=== PATIENT | female | born 1975 | race African-American/Black ===

== ENCOUNTER 2017-09-29 09:19 | Emergency (ER) | payer SELFPAY ==
[2017-09-29 10:14] LABS: Absolute Lymphocytes (CBC) 1.4 K/uL (0.7-4.9); Absolute Monocytes 0.5 K/uL (0.1-1.3); Absolute Neutrophil 4.2 K/uL (1.8-8.0); Basophils % 0.4 % (0-1.3); Eosinophils % 1.3 % (0-4.4); Lymphocytes % 22.4 % (15.3-44.8); MCH 24.5 pg (27.0-35.0); MPV 9.2 fL (7.6-11.3)
[2017-09-29 10:24] LABS: Bicarbonate 21 mEq/L (21-31); Glucose Level 66 mg/dL (65-120); Potassium 3.9 mEq/L (3.6-5.0); Sodium Level 137 mEq/L (135-145)
[2017-09-29 10:27] LABS: ALT/SGPT 11 IU/L (10-60); AST/SGOT 19 IU/L (10-42); Albumin 5.1 g/dL (3.2-5.5); Alkaline Phosphatase 61 IU/L (42-121); BUN Blood Urea Nitrogen 16 mg/dL (6-20); Bilirubin Total 0.7 mg/dL (0.3-1.2); Protein, Total 9.5 g/dL (6.0-8.3)
--- NOTE | 2017-09-29 10:39 | ER ---
Nurse's Notes [facility] Name: Krysten Marley Age: 41 yrs Sex: Female : 1975 Arrival Date: 09/29/2017 Time: 09:22 Bed 15 Private MD: out of town, doctor Diagnosis: Cervical disc disorder with radiculopathy Presentation: 09/29 09:34 Presenting complaint: Patient states: has had pian to right arm X 2 weeks, radiates to iw neck, thinks it may be a pinched nerve, also has had a cough at night that keeps her from sleeping, also took a total of ten 500 mg Tylenol tabs on Friday from 7am-5 pm. Transition of care: patient was not received from another setting of care. Onset of symptoms was September 14, 2017. Care prior to arrival: None. 09:34 Method Of Arrival: Ambulatory iw 09:34 Acuity: NELSON 3 iw 09:35 Risk Assessment: Do you want to hurt yourself or someone else? Patient reports no tw2 desire to harm self or others. Initial Sepsis Screen: Does the patient meet any 2 criteria? No. Patient's initial sepsis screen is negative. Does the patient have a suspected source of infection? No. Patient's initial sepsis screen is negative. DIRECTOR OF OPERATIONS FOR THERAPY: 10:48 LMP N/A - . tw2 Historical: - Allergies: 09:59 No Known Allergies; tw2 - Home Meds: 09:59 None [Active]; tw2 - PMHx: 09:59 None; tw2 - Immunization history:: Adult Immunizations up to date. - Social history:: Smoking status: Patient/guardian denies using tobacco. - Ebola Screening: : Patient denies travel to an Ebola-affected area in the 21 days before illness onset. Screenin:33 Abuse screen: Denies threats or abuse. Nutritional screening: No deficits noted. tw2 Tuberculosis screening: No symptoms or risk factors identified. Fall Risk None identified. Assessment: 09:57 General: Appears in no apparent distress. slender, well groomed, Behavior is calm, tw2 cooperative, appropriate for age. Pain: Denies pain. Neuro: Level of Consciousness is awake, alert, obeys commands, Oriented to person, place, time, situation. Cardiovascular: Denies chest pain, shortness of breath, Heart tones S1 S2 Capillary refill < 3 seconds Patient's skin is warm and dry. Respiratory: Reports cough that is non-productive, worse at night Airway is patent Respiratory effort is even, unlabored, Respiratory pattern is regular, symmetrical, Breath sounds are clear bilaterally. GI: No signs and/or symptoms were reported involving the gastrointestinal system. Abdomen is flat, Bowel sounds present X 4 quads. : No signs and/or symptoms were reported regarding the genitourinary system. EENT: No signs and/or symptoms were reported regarding the EENT system. Derm: Skin is intact, is healthy with good turgor, Skin temperature is warm. Musculoskeletal: Range of motion: intact in all extremities. 10:17 Reassessment: Patient appears in no apparent distress at this time. No changes from tw2 previously documented assessment. Patient and/or family updated on plan of care and expected duration. Pain level reassessed. Patient is alert, oriented x 3, equal unlabored respirations, skin warm/dry/pink. 10:46 Reassessment: Patient appears in no apparent distress at this time. No changes from tw2 previously documented assessment. Patient and/or family updated on plan of care and expected duration. Pain level reassessed. Patient is alert, oriented x 3, equal unlabored respirations, skin warm/dry/pink. Vital Signs: 09:35 BP 115 / 92; Pulse 78; Resp 16 S; Temp 97.6; Pulse Ox 98% on R/A; iw 10:18 BP 115 / 87; Pulse 69; Resp 17; Pulse Ox 99% on R/A; tw2 10:47 BP 122 / 92; Pulse 64; Resp 16; Pulse Ox 98% on R/A; tw2 ED Course: 09:22 Patient arrived in ED. mr 09:22 out of town, doctor is Private Physician. mr 09:31 Saundra Nelson, MINAL is Primary Nurse. tw2 09:33 Arm band placed on. tw2 09:36 Emery Vale MD is Attending Physician. gs 09:36 Bed in low position. Call light in reach. Pulse ox on. NIBP on. tw2 09:38 Triage completed. iw 09:53 Urine --Ancillary (enter results) Sent. mh5 09:53 Urine Dipstick--Ancillary (enter results) Sent. mh5 09:53 Urine collected: clean catch specimen, clear. mh5 09:54 No provider procedures requiring assistance completed. Missed attempt(s): 24 gauge in tw2 left antecubital area. pt agreeable to additional sticks, states "i never have veins when i go to the doctors, this always happens to me". Missed attempt(s): 22 gauge in right antecubital area. Bleeding controlled, band aid applied, catheter tip intact. Missed attempt(s): 22 gauge in right antecubital area. MINAL Carrillo attempting at this time.. Bleeding controlled, band aid applied, catheter tip intact. 10:00 Missed attempt(s): 22 gauge in left antecubital area. Bleeding controlled, band aid sv applied, catheter tip intact. 10:02 Initial lab(s) drawn, by me, sent to lab. sv 10:07 Tylenol Level Sent. tw2 10:07 CMP Sent. tw2 10:07 CBC with Diff Sent. tw2 10:37 Dakotah Juarez MD is Referral Physician. 10:47 Patient did not have IV access during this emergency room visit. tw2 Administered Medications: No medications were administered Outcome: 10:38 Discharge ordered by . 10:47 Discharged to home ambulatory. tw2 10:47 Condition: stable 10:47 Discharge instructions given to patient, Instructed on discharge instructions, follow up and referral plans. medication usage, Demonstrated understanding of instructions, follow-up care, medications, Prescriptions given X 3. 10:48 Patient left the ED. tw2 Signatures: Lorena Cho RN RN sv Rivera, Maria mr Cherise Eldridge RN RN Saundra Nelson RN RN [facility] Teresa Glasgow [facility] Emery Vale MD MD Corrections: (The following items were deleted from the chart) 09:38 09:35 Temp 97.6F; tw2 iw
--- NOTE | 2017-09-29 10:39 | EDPHYS ---
Physician Documentation [facility] Name: Krysten Marley Age: 41 yrs Sex: Female : 1975 Arrival Date: 09/29/2017 Time: 09:22 Bed 15 Private MD: out of town, doctor ED Physician Emery Vale HPI: 09/29 11:01 This 41 yrs old Black Female presents to ER via Ambulatory with complaints of Arm Pain, gs Congestion, Runny Nose. 11:01 The patient or guardian complains of pain, that is acute. The complaints affect the gs anterior aspect of right shoulder and right bicep right upper back and medial scapula. Onset: The symptoms/episode began/occurred 3 day(s) ago. Modifying factors: the symptoms are aggravated by movement. Associated signs and symptoms: Pertinent negatives: deformity, erythema, numbness, incontinent of bowel or bladder. Severity of symptoms: At their worst the symptoms were moderate, in the emergency department the symptoms are unchanged. The patient has experienced similar episodes in the past, a few times. says too over 5000mg tylenol friday. 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 tw2 Historical: - Allergies: 09:59 No Known Allergies; tw2 - Home Meds: :59 None [Active]; tw2 - PMHx: :59 None; tw2 - Immunization history:: Adult Immunizations up to date. - Social history:: Smoking status: Patient/guardian denies using tobacco. - Ebola Screening: : Patient denies travel to an Ebola-affected area in the 21 days before illness onset. ROS: 11:01 All other systems are negative. gs Exam: 11:01 Head/Face: Normocephalic, atraumatic. Eyes: Pupils equal round and reactive to light, gs extra-ocular motions intact. Lids and lashes normal. Conjunctiva and sclera are non-icteric and not injected. Cornea within normal limits. Periorbital areas with no swelling, redness, or edema. ENT: Nares patent. No nasal discharge, no septal abnormalities noted. Tympanic membranes are normal and external auditory canals are clear. Oropharynx with no redness, swelling, or masses, exudates, or evidence of obstruction, uvula midline. Mucous membranes moist. Chest/axilla: Normal chest wall appearance and motion. Nontender with no deformity. No lesions are appreciated. Cardiovascular: Regular rate and rhythm with a normal S1 and S2. No gallops, murmurs, or rubs. Normal PMI, no JVD. No pulse deficits. Respiratory: Lungs have equal breath sounds bilaterally, clear to auscultation and percussion. No rales, rhonchi or wheezes noted. No increased work of breathing, no retractions or nasal flaring. Abdomen/GI: Soft, non-tender, with normal bowel sounds. No distension or tympany. No guarding or rebound. No evidence of tenderness throughout. Back: No spinal tenderness. No costovertebral tenderness. Full range of motion. Skin: Warm, dry with normal turgor. Normal color with no rashes, no lesions, and no evidence of cellulitis. MS/ Extremity: Pulses equal, no cyanosis. Neurovascular intact. Full, normal range of motion. Neuro: Awake and alert, GCS 15, oriented to person, place, time, and situation. Cranial nerves II-XII grossly intact. Motor strength 5/5 in all extremities. Sensory grossly intact. Cerebellar exam normal. Normal gait. 11:01 Constitutional: The patient appears alert, awake. 11:01 Neck: External neck: tenderness, that is moderate, of the right trapezius. Vital Signs: 09:35 BP 115 / 92; Pulse 78; Resp 16 S; Temp 97.6; Pulse Ox 98% on R/A; iw 10:18 BP 115 / 87; Pulse 69; Resp 17; Pulse Ox 99% on R/A; tw2 10:47 BP 122 / 92; Pulse 64; Resp 16; Pulse Ox 98% on R/A; tw2 MDM: 09:36 Patient medically screened. gs 11:01 Differential diagnosis: tendonitis, cervical radiculopathy, tylenol toxicity. Data reviewed: vital signs, nurses notes. 09/29 09:39 Order name: CBC with Diff; Complete Time: 10:36 09/29 09:39 Order name: CMP; Complete Time: 10:36 09/29 09:39 Order name: Tylenol Level; Complete Time: 10:36 09/29 09:47 Order name: Urine Dipstick--Ancillary (enter results) bd 09/29 09:47 Order name: Urine --Ancillary (enter results) bd Administered Medications: No medications were administered Disposition: 09/29/17 10:38 Discharged to Home. Impression: Cervical disc disorder with radiculopathy. - Condition is Stable. - Discharge Instructions: Cervical Radiculopathy, [id number]. - Prescriptions for Naprosyn 500 mg Oral Tablet - take 1 tablet by ORAL route 2 times per day take with food; 20 tablet. Prednisone 20 mg Oral Tablet - take 1 tablet by ORAL route once daily for 5 days; 5 tablet. Pepcid 20 mg Oral Tablet - take 1 tablet by ORAL route every 12 hours for 10 days; 20 tablet. - Work release form, Medication Reconciliation Form, Thank You Letter, Antibiotic Education, Prescription Opioid Use form. - Follow up: Dakotah Juarez MD; When: 2 - 3 days; Reason: Re-evaluation by your physician. Signatures: Dispatcher [employer] Saundra Valiente RN RN tw2 Emery Vale MD MD gs Corrections: (The following items were deleted from the chart) 10:48 10:38 09/29/2017 10:38 Discharged to Home. Impression: Cervical disc disorder with tw2 radiculopathy. Condition is Stable. Forms are Work release form, Medication Reconciliation Form, Thank You Letter, Antibiotic Education, Prescription Opioid Use. Follow up: Dakotah Juarez; When: 2 - 3 days; Reason: Re-evaluation by your physician. gs
[2017-09-29 11:11] VITALS: TEMP 97.6
[2017-09-29 11:14] VITALS: BP 122/92; O2SAT 98
[2017-09-29 11:21] LABS: Urine Blood NEGATIVE (NEG); Urine Glucose NEGATIVE (NEG); Urine Protein NEGATIVE (NEG); Urine pH 5.5 (5.0-7.0)
== END 2017-09-29 10:48 | disposition home or self-care (01) ==
LOC: ER 09:19
DX: M54.12 Radiculopathy, cervical region (principal)
CPT/HCPCS: 36415; 80053; 80329; 81003; 81025; 85025; 99283

== ENCOUNTER 2018-01-08 18:04 | Emergency (ER) | payer SELFPAY ==
[2018-01-08 19:55] LABS: Urine Blood NEGATIVE (NEG); Urine Glucose NEGATIVE (NEG); Urine Protein NEGATIVE (NEG); Urine Specific Gravity 1.015 (1.005-1.030); Urine pH 6.5 (5.0-7.0)
--- NOTE | 2018-01-08 20:36 | EDPHYS ---
Physician Documentation [facility] Name: Krysten Marley Age: 42 yrs Sex: Female : 1975 Arrival Date: 01/08/2018 Time: 18:05 Bed 20 Private MD: Ranjit Perez ED Physician Deepak Wolf HPI: 01/08 19:43 This 42 yrs old Black Female presents to ER via Ambulatory with complaints of Back Pain.keila 19:43 The patient presents with pain and decreased range of motion. The symptoms are located keila in the low back. Onset: The symptoms/episode began/occurred 2 day(s) ago. The pain does not radiate. Associated signs and symptoms: The patient has no apparent associated signs or symptoms. The problem was sustained from unknown cause. Modifying factors: The patient symptoms are alleviated by remaining still, the patient symptoms are aggravated by lifting, movement. Severity of symptoms: At their worst the symptoms were mild, moderate, in the emergency department the symptoms are unchanged. The patient has not experienced similar symptoms in the past. 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 - Social history:: Smoking status: Patient uses tobacco products, smokes one-half pack cigarettes per day. - Ebola Screening: : Patient denies travel to an Ebola-affected area in the 21 days before illness onset. - Family history:: not pertinent. ROS: 19:43 Constitutional: Negative for fever, chills, and weight loss, Eyes: Negative for injury, keila pain, redness, and discharge, ENT: Negative for injury, pain, and discharge, Neck: Negative for injury, pain, and swelling, Cardiovascular: Negative for chest pain, palpitations, and edema, Respiratory: Negative for shortness of breath, cough, wheezing, and pleuritic chest pain, Abdomen/GI: Negative for abdominal pain, nausea, vomiting, diarrhea, and constipation, MS/Extremity: Negative for injury and deformity, Skin: Negative for injury, rash, and discoloration, Neuro: Negative for headache, weakness, numbness, tingling, and seizure, Psych: Negative for depression, anxiety, suicide ideation, homicidal ideation, and hallucinations, Allergy/Immunology: Negative for hives, rash, and allergies, Endocrine: Negative for neck swelling, polydipsia, polyuria, polyphagia, and marked weight changes, Hematologic/Lymphatic: Negative for swollen nodes, abnormal bleeding, and unusual bruising. 19:43 Back: Positive for decreased range of motion, flank pain, on the right. Exam: 19:43 Constitutional: This is a well developed, well nourished patient who is awake, alert, keila and in no acute distress. Head/Face: Normocephalic, atraumatic. Eyes: Pupils equal round and reactive to light, extra-ocular motions intact. Lids and lashes normal. Conjunctiva and sclera are non-icteric and not injected. Cornea within normal limits. Periorbital areas with no swelling, redness, or edema. ENT: Nares patent. No nasal discharge, no septal abnormalities noted. Tympanic membranes are normal and external auditory canals are clear. Oropharynx with no redness, swelling, or masses, exudates, or evidence of obstruction, uvula midline. Mucous membranes moist. Neck: Trachea midline, no thyromegaly or masses palpated, and no cervical lymphadenopathy. Supple, full range of motion without nuchal rigidity, or vertebral point tenderness. No Meningismus. Chest/axilla: Normal chest wall appearance and motion. Nontender with no deformity. No lesions are appreciated. Cardiovascular: Regular rate and rhythm with a normal S1 and S2. No gallops, murmurs, or rubs. Normal PMI, no JVD. No pulse deficits. Respiratory: Lungs have equal breath sounds bilaterally, clear to auscultation and percussion. No rales, rhonchi or wheezes noted. No increased work of breathing, no retractions or nasal flaring. Abdomen/GI: Soft, non-tender, with normal bowel sounds. No distension or tympany. No guarding or rebound. No evidence of tenderness throughout. Back: No spinal tenderness. No costovertebral tenderness. Full range of motion. Skin: Warm, dry with normal turgor. Normal color with no rashes, no lesions, and no evidence of cellulitis. MS/ Extremity: Pulses equal, no cyanosis. Neurovascular intact. Full, normal range of motion. Neuro: Awake and alert, GCS 15, oriented to person, place, time, and situation. Cranial nerves II-XII grossly intact. Motor strength 5/5 in all extremities. Sensory grossly intact. Cerebellar exam normal. Normal gait. Psych: Awake, alert, with orientation to person, place and time. Behavior, mood, and affect are within normal limits. Vital Signs: 18:30 BP 123 / 85; Pulse 78; Resp 16; Temp 97.6; Pulse Ox 100% on R/A; Weight 61.69 kg (R); aj1 Height 5 ft. 7 in. (170.18 cm) (R); Pain 5/10; 19:29 BP 125 / 89; Pulse 100; Resp 18; Pulse Ox 63% on R/A; tl2 20:57 BP 121 / 85; Pulse 65; Resp 18; Pulse Ox 100% on R/A; tl2 18:30 Body Mass Index 21.30 (61.69 kg, 170.18 cm) [facility] MDM: 19:26 Patient medically screened. [facility] 19:46 Data reviewed: vital signs, nurses notes, lab test result(s), radiologic studies, plain [facility] films. 01/08 19:21 Order name: Urine Dipstick--Ancillary (enter results); Complete Time: 20:34 [facility] 01/08 19:21 Order name: Urine --Ancillary (enter results); Complete Time: 20:34 [facility] 01/08 19:43 Order name: Lumbar Spine (3 Views) XRAY [facility] 01/08 19:43 Order name: Urine Culture [facility] Administered Medications: No medications were administered Disposition: 01/08/18 20:35 Discharged to Home. Impression: Low back pain. - Condition is Stable. - Discharge Instructions: Back Pain, Adult, Musculoskeletal Pain, Back Injury Prevention, [id number], Back Pain, Adult, [id number]. - Prescriptions for Tylenol- Codeine #3 300-30 mg Oral Tablet - take 2 tablets by ORAL route every 6 hours As needed; 20 tablet. Motrin IB 200 mg Oral Tablet - take 1 tablet by ORAL route every 6 hours As needed as needed with food; 20 tablet. Cyclobenzaprine 5 mg Oral Tablet - take 1 tablet by ORAL route 3 times per day As needed; 15 tablet. - Medication Reconciliation Form, Thank You Letter, Antibiotic Education, Prescription Opioid Use form. - Follow up: Ranjti Perez MD; When: 2 - 3 days; Reason: Recheck today's complaints, Continuance of care, Re-evaluation by your physician. - Problem is new. - Symptoms have improved. Signatures: Dispatcher [employer] Naila Diehl RN RN aj1 Deepak Wolf MD MD cha Knox, Taylor RN RN tl2 Corrections: (The following items were deleted from the chart) 20:59 20:35 01/08/2018 20:35 Discharged to Home. Impression: Low back pain. Condition is tl2 Stable. Forms are Medication Reconciliation Form, Thank You Letter, Antibiotic Education, Prescription Opioid Use. Follow up: Ranjit Perez; When: 2 - 3 days; Reason: Recheck today's complaints, Continuance of care, Re-evaluation by your physician. Problem is new. Symptoms have improved. keila
--- NOTE | 2018-01-08 20:36 | ER ---
Nurse's Notes [facility] Name: Krysten Marley Age: 42 yrs Sex: Female : 1975 Arrival Date: 01/08/2018 Time: 18:05 Bed 20 Private MD: aRnjit Perez Diagnosis: Low back pain Presentation: 01/08 18:28 Presenting complaint: Patient states: Back pain for the past 2 to 3 weeks, now she has aj1 started to have a brownish vaginal discharge. Denies fever. Reports dysuria. Transition of care: patient was not received from another setting of care. Onset of symptoms was December 2017. Risk Assessment: Do you want to hurt yourself or someone else? Patient reports no desire to harm self or others. Initial Sepsis Screen: Does the patient meet any 2 criteria? No. Patient's initial sepsis screen is negative. Does the patient have a suspected source of infection? No. Patient's initial sepsis screen is negative. Care prior to arrival: None. 18:28 Method Of Arrival: Ambulatory aj 18:28 Acuity: NELSON 3 aj1 Triage Assessment: 18:30 General: Appears in no apparent distress. uncomfortable, Behavior is calm, cooperative, aj1 appropriate for age. Pain: Complains of pain in left low back Pain currently is 6 out of 10 on a pain scale. Neuro: Level of Consciousness is awake, alert, obeys commands. Cardiovascular: Patient's skin is warm and dry. Respiratory: Airway is patent Respiratory effort is even, unlabored, Respiratory pattern is regular, symmetrical. : Reports burning with urination, discharge, from vagina that is brown. Musculoskeletal: Range of motion: intact in all extremities. 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 - Social history:: Smoking status: Patient uses tobacco products, smokes one-half pack cigarettes per day. - Ebola Screening: : Patient denies travel to an Ebola-affected area in the 21 days before illness onset. - Family history:: not pertinent. Screenin:20 Abuse screen: Denies threats or abuse. Nutritional screening: No deficits noted. tl2 Tuberculosis screening: No symptoms or risk factors identified. Fall Risk None identified. Assessment: 19:20 General: Appears in no apparent distress. uncomfortable, Behavior is calm, cooperative, tl2 appropriate for age. Pain: Complains of pain in left low back and left mid back Pain currently is 8 out of 10 on a pain scale. Neuro: Level of Consciousness is awake, alert, obeys commands, Oriented to person, place, time, situation. Cardiovascular: Denies chest pain. Respiratory: Airway is patent Respiratory effort is even, unlabored, Respiratory pattern is regular, symmetrical. GI: Patient currently denies nausea, vomiting. : Reports discharge, from vagina that is Denies burning with urination. Derm: Skin is normal. 20:30 Reassessment: Patient appears in no apparent distress at this time. Patient and/or tl2 family updated on plan of care and expected duration. Pain level reassessed. Patient is alert, oriented x 3, equal unlabored respirations, skin warm/dry/pink. awaiting Xray report. 20:57 Reassessment: Patient appears in no apparent distress at this time. Patient and/or tl2 family updated on plan of care and expected duration. Pain level reassessed. Patient is alert, oriented x 3, equal unlabored respirations, skin warm/dry/pink. Pt verbalized understanding of discharge instructions, need for follow up and prescription usage. Vital Signs: 18:30 BP 123 / 85; Pulse 78; Resp 16; Temp 97.6; Pulse Ox 100% on R/A; Weight 61.69 kg (R); aj1 Height 5 ft. 7 in. (170.18 cm) (R); Pain 5/10; 19:29 BP 125 / 89; Pulse 100; Resp 18; Pulse Ox 63% on R/A; tl2 20:57 BP 121 / 85; Pulse 65; Resp 18; Pulse Ox 100% on R/A; tl2 18:30 Body Mass Index 21.30 (61.69 kg, 170.18 cm) aj1 ED Course: 18:05 Patient arrived in ED. sb2 18:06 Ranjit Perez MD is Private Physician. sb2 18:29 Triage completed. aj1 18:30 Arm band placed on Patient placed in waiting room, Patient notified of wait time. aj1 19:20 Juana Walsh, RN is Primary Nurse. tl2 19:20 Patient has correct armband on for positive identification. Placed in gown. Bed in low tl2 position. Call light in reach. Side rails up X 1. 19:20 No provider procedures requiring assistance completed. tl2 19:26 Deepak Wolf MD is Attending Physician. [facility] 19:45 Urine collected: clean catch specimen, clear, ruthy colored. jp3 20:12 Urine Culture Sent. jp3 20:22 Lumbar Spine (3 Views) XRAY In Process Unspecified. EDMS 20:34 Ranjit Perez MD is Referral Physician. [facility] 20:57 Patient did not have IV access during this emergency room visit. tl2 Administered Medications: No medications were administered Outcome: 20:35 Discharge ordered by . [facility] 20:57 Discharged to home ambulatory. tl2 20:57 Condition: stable 20:57 Discharge instructions given to patient, Instructed on discharge instructions, follow up and referral plans. medication usage, Demonstrated understanding of instructions, follow-up care, medications, Prescriptions given X 3. 20:59 Patient left the ED. tl2 Signatures: Dispatcher [employer] EDTN Naila Killian RN RN aj1 Deepak Wolf MD MD cha Knox, Taylor, RN RN tl2 Deepa Ruiz 2 Aidan Aguilar jp3
--- NOTE | 2018-01-08 20:58 | RAD REPORT ---
EXAM DESCRIPTION: RAD - Lumbar Spine 3 Views - 01/08/2018 8:22 pm CLINICAL HISTORY: Back pain COMPARISON: None. FINDINGS: A three-view lumbar spine examination was performed. Lumbar bodies are normal in height an d alignment. No fracture or acute bony process seen. No disc space narrowing. Mild facet degenerative changes are present between L3 and L5. No pars defects identified. IMPRESSION: Mild lower lumbar facet degenerative change. No acute findings noted.
[2018-01-08 21:10] VITALS: TEMP 97.6
[2018-01-08 21:13] VITALS: BP 121/85; O2SAT 100
== END 2018-01-08 20:59 | disposition home or self-care (01) ==
LOC: ER 18:04
DX: M54.5 Low back pain (principal); F17.210 Nicotine dependence, cigarettes, uncomplicated
CPT/HCPCS: 72100; 81003; 81025; 87086; 87088; 99283

== ENCOUNTER 2018-06-30 18:01 | Emergency (ER) | payer BC, SELFPAY ==
[2018-06-30 19:04] LABS: Absolute Monocytes 0.5 K/uL (0.1-1.3); Absolute Neutrophil 3.7 K/uL (1.8-8.0); Basophils % 0.7 % (0-1.3); Eosinophils % 2.4 % (0-4.4); Hematocrit 40.6 % (36.0-45.0); Lymphocytes % 31.6 % (15.3-44.8); Monocytes % 8.1 % (3.3-12.3); Protime INR 1.05
[2018-06-30 19:11] LABS: Urine Blood NEGATIVE (NEG); Urine Glucose NEGATIVE (NEG); Urine Protein NEGATIVE (NEG); Urine Specific Gravity 1.025 (1.005-1.030); Urine pH 5.5 (5.0-7.0)
[2018-06-30 19:19] LABS: ALT/SGPT 13 U/L (12-78); AST/SGOT 9 U/L (15-37); Alkaline Phosphatase 63 U/L (45-117); BUN Blood Urea Nitrogen 14 mg/dL (7-18); Bicarbonate 25 mmol/L (21-32); Bilirubin Direct 0.1 mg/dL (0-0.2); Bilirubin Total 0.3 mg/dL (0.2-1.0); Glucose Level 74 mg/dL (74-106); Magnesium 2.1 mg/dL (1.8-2.4); NT PRO-BNP 60 pg/mL (<125); Potassium 3.6 mmol/L (3.5-5.1); Protein, Total 7.9 g/dL (6.4-8.2); Sodium Level 140 mmol/L (136-145); Troponin (Emerg Dept Use Only) < 0.02 ng/mL (0.0-0.045)
--- NOTE | 2018-06-30 19:40 | RAD REPORT ---
EXAM DESCRIPTION: Meera Single View06/30/2018 7:11 pm CLINICAL HISTORY: Chest pain COMPARISON: And 2017 FINDINGS: 9 millimeter nodular opacity overlies the mid to lower left lung. Lungs are moderately hy peraerated. The heart is normal size IMPRESSION: COPD Nodular opacity overlying the left lung probably representing a nipple shadow. Pulmonary nodules anot her consideration. It is recommended that patient have frontal and oblique views of the chest with a left nipple marker for further evaluation
--- NOTE | 2018-06-30 20:25 | EDPHYS ---
Physician Documentation [facility] Name: Krysten Marley Age: 42 yrs Sex: Female : 1975 Arrival Date: 06/30/2018 Time: 18:04 Bed 13 Private MD: None, None ED Physician Janae Wooten HPI: 06/30 18:46 This 42 yrs old Black Female presents to ER via Ambulatory with complaints of Chest ma2 Pain, Mouth Problem. 18:46 The patient or guardian reports chest pain that is located primarily in the anterior ma2 chest wall. Onset: gradually, 1 week(s) ago. Associated signs and symptoms: Pertinent positives: Pertinent negatives: cough, headache, lightheadedness. Duration: The patient or guardian reports multiple episodes, that have now resolved. Modifying factors: The symptoms are alleviated by nothing. the symptoms are aggravated by deep breath, palpation of area. Severity of pain: At its worst the pain was mild in the emergency department the pain is unchanged. Historical: - Allergies: 18:16 No Known Allergies; sv - PMHx: 18:16 None; sv - PSHx: 18:16 None; sv - Immunization history:: Adult Immunizations up to date. - Social history:: Patient/guardian denies using alcohol, street drugs, The patient lives with family, Smoking status: Patient/guardian denies using tobacco. - Family history:: not pertinent. - Ebola Screening: : No symptoms or risks identified at this time. ROS: 18:46 Constitutional: Negative for fever, chills, and weight loss. ma2 18:46 All other systems are negative. Exam: 18:46 Constitutional: This is a well developed, well nourished patient who is awake, alert, ma2 and in no acute distress. Chest/axilla: Normal chest wall appearance and motion. Nontender with no deformity. No lesions are appreciated. Cardiovascular: Regular rate and rhythm with a normal S1 and S2. No gallops, murmurs, or rubs. Normal PMI, no JVD. No pulse deficits. Respiratory: Lungs have equal breath sounds bilaterally, clear to auscultation and percussion. No rales, rhonchi or wheezes noted. No increased work of breathing, no retractions or nasal flaring. Abdomen/GI: Soft, non-tender, with normal bowel sounds. No distension or tympany. No guarding or rebound. No evidence of tenderness throughout. MS/ Extremity: Pulses equal, no cyanosis. Neurovascular intact. Full, normal range of motion. Neuro: Awake and alert, GCS 15, oriented to person, place, time, and situation. Cranial nerves II-XII grossly intact. Motor strength 5/5 in all extremities. Sensory grossly intact. Cerebellar exam normal. Normal gait. 18:46 Chest/axilla: Inspection: normal, Palpation: tenderness, that is moderate. Vital Signs: 18:16 BP 107 / 78; Pulse 75; Resp 16; Temp 97.5; Pulse Ox 98% ; Weight 61.69 kg; Height 5 ft. sv 7 in. (170.18 cm); Pain 0/10; 20:30 BP 128 / 99; Pulse 60; Resp 16; Pulse Ox 97% on R/A; jb4 18:16 Body Mass Index 21.30 (61.69 kg, 170.18 cm) sv MDM: 18:27 Patient medically screened. ma2 18:46 Differential diagnosis: esophagitis, gastritis, gastroesophageal reflux disease (GERD). ma2 19:55 Data reviewed: vital signs, nurses notes, lab test result(s), radiologic studies. ma2 Counseling: I had a detailed discussion with the patient and/or guardian regarding: the historical points, exam findings, and any diagnostic results supporting the discharge/admit diagnosis, the presence of at least one elevated blood pressure reading (>120/80) during this emergency department visit, the need for outpatient follow up. 06/30 18:27 Order name: Basic Metabolic Panel; Complete Time: 19:32 2 06/30 18:27 Order name: CBC with Diff; Complete Time: :32 2 06/30 18:27 Order name: LFT's; Complete Time: :32 ma2 06/30 18:27 Order name: Magnesium; Complete Time: :32 2 06/30 18:27 Order name: NT PRO-BNP; Complete Time: :32 06/30 18:27 Order name: PT-INR; Complete Time: :32 2 06/30 18:27 Order name: Troponin (emerg Dept Use Only); Complete Time: :32 ma2 06/30 18:27 Order name: XRAY Chest (1 view); Complete Time: 19:55 ma2 06/30 18:27 Order name: EKG; Complete Time: 18:28 ma2 06/30 18:27 Order name: Cardiac monitoring; Complete Time: 18:44 ma2 06/30 18:27 Order name: EKG - Nurse/Tech; Complete Time: 18:43 ma2 06/30 18:27 Order name: IV Saline Lock; Complete Time: 18:57 ma2 06/30 18:46 Order name: Urine Dipstick--Ancillary (enter results); Complete Time: 19:32 bd 06/30 18:46 Order name: Urine --Ancillary (enter results); Complete Time: 19:32 bd 06/30 18:27 Order name: Labs collected and sent; Complete Time: 18:58 ma2 06/30 18:27 Order name: O2 Per Protocol; Complete Time: 18:58 ma2 06/30 18:27 Order name: O2 Sat Monitoring; Complete Time: 18:58 ma2 Administered Medications: No medications were administered Disposition: 06/30/18 20:24 Discharged to Home. Impression: Shortness of breath. - Condition is Stable. - Discharge Instructions: Shortness of Breath, [id number]. - Prescriptions for Zithromax Z- Ata 250 mg Oral Tablet - take 1 tablet by ORAL route as directed for 5 days Day 1 - take two (2) tablets one time. Day 2, 3, 4 , 5 take one (1) tablet once daily.; 6 tablet. - Medication Reconciliation Form, Thank You Letter, Antibiotic Education, Prescription Opioid Use form. - Follow up: Private Physician; When: Tomorrow; Reason: Continuance of care. - Notes: you have a lung nodule on chest x ray, please follow up with your PCP for further evaluation. Signatures: Dispatcher [employer] Lorena Seay RN RN sv Baxter, Heather, RN RN hb Bryson, James, RN RN jb4 Janae Wooten MD MD ma2 Corrections: (The following items were deleted from the chart) 20:51 20:24 06/30/2018 20:24 Discharged to Home. Impression: Shortness of breath. Condition jb4 is Stable. Discharge Instructions: Shortness of Breath, Glsh-yj-Oihy. Prescriptions for Zithromax Z-Ata 250 mg Oral Tablet - take 1 tablet by ORAL route as directed for 5 days Day 1 - take two (2) tablets one time. Day 2, 3, 4 , 5 take one (1) tablet once daily.; 6 tablet. and Forms are Medication Reconciliation Form, Thank You Letter, Antibiotic Education, Prescription Opioid Use. Follow up: Private Physician; When: Tomorrow; Reason: Continuance of care. ma2
--- NOTE | 2018-06-30 20:25 | ER ---
Nurse's Notes [facility] Name: Krysten Marley Age: 42 yrs Sex: Female : 1975 Arrival Date: 06/30/2018 Time: 18:04 Bed 13 Private MD: None, None Diagnosis: Shortness of breath Presentation: 06/30 18:16 Presenting complaint: Patient states: left sided chest pain when she moves and mouth sv sores x 1 day. Transition of care: patient was not received from another setting of care. Onset of symptoms was June 29, 2018. Care prior to arrival: None. 18:16 Method Of Arrival: Ambulatory sv 18:16 Acuity: NELSON 3 sv 18:45 Risk Assessment: Do you want to hurt yourself or someone else? Patient reports no hb desire to harm self or others. Initial Sepsis Screen: Does the patient meet any 2 criteria? No. Patient's initial sepsis screen is negative. Does the patient have a suspected source of infection? No. Patient's initial sepsis screen is negative. Historical: - Allergies: 18:16 No Known Allergies; sv - PMHx: 18:16 None; sv - PSHx: 18:16 None; sv - Immunization history:: Adult Immunizations up to date. - Social history:: Patient/guardian denies using alcohol, street drugs, The patient lives with family, Smoking status: Patient/guardian denies using tobacco. - Family history:: not pertinent. - Ebola Screening: : No symptoms or risks identified at this time. Screenin:35 Abuse screen: Denies threats or abuse. Denies injuries from another. Nutritional hb screening: No deficits noted. Tuberculosis screening: No symptoms or risk factors identified. Fall Risk None identified. Assessment: 18:35 General: Appears in no apparent distress. Behavior is calm, cooperative. Pain: hb Complains of pain in left breast Pain does not radiate. Pain currently is 2 out of 10 on a pain scale. Pain began 4 hours ago. Neuro: Level of Consciousness is awake, alert, obeys commands, Oriented to person, place, time, situation. Cardiovascular: Heart tones S1 S2 present Capillary refill < 3 seconds Patient's skin is warm and dry. Respiratory: Airway is patent Respiratory effort is even, unlabored, Respiratory pattern is regular, symmetrical, Breath sounds are clear bilaterally. GI: No signs and/or symptoms were reported involving the gastrointestinal system. : No signs and/or symptoms were reported regarding the genitourinary system. EENT: No signs and/or symptoms were reported regarding the EENT system. Derm: Skin is intact, is healthy with good turgor. Musculoskeletal: No signs and/or symptoms reported regarding the musculoskeletal system. 19:30 Reassessment: Patient appears in no apparent distress at this time. Patient and/or jb4 family updated on plan of care and expected duration. Pain level reassessed. Patient is alert, oriented x 3, equal unlabored respirations, skin warm/dry/pink. 20:30 Reassessment: Patient appears in no apparent distress at this time. Patient and/or jb4 family updated on plan of care and expected duration. Pain level reassessed. Patient is alert, oriented x 3, equal unlabored respirations, skin warm/dry/pink. Vital Signs: 18:16 BP 107 / 78; Pulse 75; Resp 16; Temp 97.5; Pulse Ox 98% ; Weight 61.69 kg; Height 5 ft. sv 7 in. (170.18 cm); Pain 0/10; 20:30 BP 128 / 99; Pulse 60; Resp 16; Pulse Ox 97% on R/A; jb4 18:16 Body Mass Index 21.30 (61.69 kg, 170.18 cm) sv ED Course: 18:04 Patient arrived in ED. mr 18:04 None, None is Private Physician. mr 18:16 Triage completed. sv 18:18 Arm band placed on. sv 18:20 Tiana Sanchez, MINAL is Primary Nurse. hb 18:27 Janae Wooten MD is Attending Physician. ma2 18:35 Patient maintains SpO2 saturation greater than 95% on room air. hb 18:40 Inserted saline lock: 20 gauge in right forearm, using aseptic technique. Blood hb collected. 18:42 EKG done, by ED staff, reviewed by Janae Wooten MD. mh5 18:43 Patient has correct armband on for positive identification. Placed in gown. Bed in low mh5 position. Call light in reach. Side rails up X 1. Warm blanket given. hydrologic modeler on. Pulse ox on. NIBP on. 19:08 X-ray completed. Portable x-ray completed in exam room. Patient tolerated procedure ml well. 19:10 XRAY Chest (1 view) In Process Unspecified. EDMS 20:30 No provider procedures requiring assistance completed. IV discontinued, intact, jb4 bleeding controlled. Administered Medications: No medications were administered Outcome: 20:24 Discharge ordered by . otis 20:30 Discharged to home ambulatory. jb4 20:30 Condition: stable 20:30 Discharge instructions given to patient, Instructed on discharge instructions, follow up and referral plans. medication usage, Demonstrated understanding of instructions, follow-up care, medications, Prescriptions given X 1. 20:51 Patient left the ED. jb4 Signatures: Dispatcher [employer] EDMS Lorena Cho RN RN jhon Rowan, Nora mr Ritesh, Irena Tiana Carlos, RN Dakotah Buck RN RN jbTeresa Padilla Mohammad, MD MD ma2 Corrections: (The following items were deleted from the chart) 18:18 18:16 Presenting complaint: Patient states: left sided chest pain and mouth sores x 1 sv day. sv
[2018-06-30 20:58] VITALS: TEMP 97.5
[2018-06-30 21:00] VITALS: BP 128/99; O2SAT 97
--- NOTE | 2018-07-01 07:44 | EKG ---
Test Date: 2018-06-30 Test Time: 18:30:23 Senior Coldfusion Developer: TAMIA MEASUREMENT RESULTS: Intervals: Rate: 74 WA: 140 QRSD: 80 QT: 396 QTc: 439 [place]odgett: P: 44 WA: 140 QRS: 66 T: 60 INTERPRETIVE STATEMENTS: Normal sinus rhythm Normal ECG Compared to ECG 12/31/2016 22:29:40 Sinus tachycardia no longer present Electronically Signed On 07-01-18 07:43:23 CDT by Vance Beltran
== END 2018-06-30 20:51 | disposition home or self-care (01) ==
LOC: ER 18:01
DX: R06.02 Shortness of breath (principal)
CPT/HCPCS: 36415; 71045; 80048; 80076; 81003; 81025; 83735; 83880; 84484; 85025; 85610; 93005; 99285

== ENCOUNTER 2018-12-13 18:07 | Emergency (ER) | payer BC ==
[2018-12-13] MEDS ORDERED: FLUORESCEIN SODIUM 1 MG/WRAP ONE (18:25)
[2018-12-13] MEDS ORDERED: TETRACAINE HCL 0.5% 4ML OPTH ONE (18:26)
[2018-12-13] MEDS ORDERED: dexAMETHasone 10 MG/ML VIAL ONE (18:53)
[2018-12-13] MEDS ORDERED: DIPHENHYDRAMINE 50 MG/ML VIAL ONE (18:53)
[2018-12-13] MEDS ORDERED: METOCLOPRAMIDE 10 MG/2mL INJ ONE (18:53)
[2018-12-13 19:17] LABS: Absolute Lymphocytes (CBC) 3.5 K/uL (0.7-4.9); Basophils % 0.7 % (0-1.3); Hematocrit 41.3 % (36.0-45.0); Lymphocytes % 48.1 % (15.3-44.8); MPV 8.9 fL (7.6-11.3); RBC Red Blood Cell Count 5.65 M/uL (3.86-4.86)
--- NOTE | 2018-12-13 19:27 | RAD REPORT ---
EXAM DESCRIPTION: CT - Head Brain Wo Cont - 12/13/2018 7:04 pm CLINICAL HISTORY: Headache COMPARISON: 2017 TECHNIQUE: Computed axial tomography of the head was obtained. IV contrast was not requested. All CT scans are performed using dose optimization technique as appropriate and may include automated exposure control or mA/KV adjustment according to patient size. FINDINGS: An intracranial bleed is not seen . The ventricles are normal in caliber. No extra-axial fluid collection is noted. Cerebellar tonsillar ectopia is present Fluid within the sinuses/ mastoids is not seen. IMPRESSION: No acute intracranial abnormality is seen. If patient's symptoms persist MRI of the bra in would be recommended.
[2018-12-13 19:33] LABS: Potassium 4.3 mmol/L (3.5-5.1)
[2018-12-13 19:54] LABS: Blood Morphology Comment NOT SEEN (NOT SEEN); Platelet Estimate ADEQ
[2018-12-13] MEDS ORDERED: IBUPROFEN 400 MG TAB ONE (20:13)
--- NOTE | 2018-12-13 20:15 | EDPHYS ---
Physician Documentation [facility] Name: Krysten Marley Age: 43 yrs Sex: Female : 1975 Arrival Date: 12/13/2018 Time: 18:09 Bed 24 Private MD: Ranjit Perez ED Physician Deepak Wolf HPI: 12/13 20:08 This 43 yrs old Black Female presents to ER via Ambulatory with complaints of headache. jr8 20:08 The patient complains of pain to the right temporal area, right occipital area and jr8 right jewish. The patient describes the headache as a pressure, throbbing. Onset: The symptoms/episode began/occurred gradually, 2 week(s) ago, and became worse and became persistent. Associated signs and symptoms: The patient has no apparent associated signs or symptoms. Severity of symptoms: At its worst the pain was moderate, in the emergency department the pain is unchanged. Headache History: Denies prior headaches. The patient has not experienced similar symptoms in the past. The patient has not recently seen a physician. History of glaucoma and currently on drops for her eye. Complains of pressure behind eye and pain to jewish on right side all the way back . 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 - Social history:: Smoking status: Patient uses tobacco products, smokes one-half pack cigarettes per day. - Ebola Screening: : No symptoms or risks identified at this time. ROS: 20:08 Eyes: Negative for injury, pain, redness, and discharge, ENT: Negative for injury, jr8 pain, and discharge, Neck: Negative for injury, pain, and swelling, Cardiovascular: Negative for chest pain, palpitations, and edema, Respiratory: Negative for shortness of breath, cough, wheezing, and pleuritic chest pain, Abdomen/GI: Negative for abdominal pain, nausea, vomiting, diarrhea, and constipation, Back: Negative for injury and pain, MS/Extremity: Negative for injury and deformity, Skin: Negative for injury, rash, and discoloration. 20:08 Neuro: Positive for headache, Negative for altered mental status, dizziness, gait disturbance, hearing loss, loss of consciousness, numbness, seizure activity, speech changes, syncope, near syncope, tingling, tinnitus, tremor, visual changes, weakness. Exam: 20:10 Eyes: Pupils equal round and reactive to light, extra-ocular motions intact. Lids and jr8 lashes normal. Conjunctiva and sclera are non-icteric and not injected. Cornea within normal limits. Periorbital areas with no swelling, redness, or edema. IOP 14mmHg right eye ENT: Nares patent. No nasal discharge, no septal abnormalities noted. Tympanic membranes are normal and external auditory canals are clear. Oropharynx with no redness, swelling, or masses, exudates, or evidence of obstruction, uvula midline. Mucous membranes moist. Neck: Trachea midline, no thyromegaly or masses palpated, and no cervical lymphadenopathy. Supple, full range of motion without nuchal rigidity, or vertebral point tenderness. No Meningismus. Cardiovascular: Regular rate and rhythm with a normal S1 and S2. No gallops, murmurs, or rubs. Normal PMI, no JVD. No pulse deficits. Respiratory: Lungs have equal breath sounds bilaterally, clear to auscultation and percussion. No rales, rhonchi or wheezes noted. No increased work of breathing, no retractions or nasal flaring. Abdomen/GI: Soft, non-tender, with normal bowel sounds. No distension or tympany. No guarding or rebound. No evidence of tenderness throughout. Back: No spinal tenderness. No costovertebral tenderness. Full range of motion. Skin: Warm, dry with normal turgor. Normal color with no rashes, no lesions, and no evidence of cellulitis. MS/ Extremity: Pulses equal, no cyanosis. Neurovascular intact. Full, normal range of motion. Neuro: Awake and alert, GCS 15, oriented to person, place, time, and situation. Cranial nerves II-XII grossly intact. Motor strength 5/5 in all extremities. Sensory grossly intact. Cerebellar exam normal. Normal gait. Vital Signs: 18:15 BP 118 / 78; Pulse 101; Resp 16; Temp 97.4; Pulse Ox 100% on R/A; Weight 68.95 kg; la1 Height 5 ft. 7 in. (170.18 cm); 19:48 BP 119 / 81; Pulse 69; Resp 16 S; Pulse Ox 100% on R/A; ca1 20:26 BP 111 / 71; Pulse 76; Resp 15 S; Pulse Ox 100% on R/A; ca1 18:15 Body Mass Index 23.81 (68.95 kg, 170.18 cm) la1 Visual Acuity: 18:17 Left Eye Visual acuity 20/40, Pupil size 4 mm, ; Right Eye Visual acuity 20/200, Pupil la1 size 4 mm, ; Without Lenses; MDM: 18:43 Patient medically screened. keila 20:10 Differential diagnosis: cluster headache, glaucoma, herpes zoster, hypoglycemia, jr8 intracerebral hemorrhage, migraine, neoplasm, otitis, sinusitis, subarachnoid bleed, subdural hematoma, tension headache, trigeminal neuralgia. Data reviewed: vital signs, nurses notes, lab test result(s), radiologic studies, CT scan. Data interpreted: Pulse oximetry: on room air is 100 %. Interpretation: normal. Counseling: I had a detailed discussion with the patient and/or guardian regarding: the historical points, exam findings, and any diagnostic results supporting the discharge/admit diagnosis, lab results, radiology results, the need for outpatient follow up, a neurologist, to return to the emergency department if symptoms worsen or persist or if there are any questions or concerns that arise at home. Response to treatment: the patient's symptoms have markedly improved after treatment. 12/13 18:46 Order name: CBC with Diff; Complete Time: 20:08 [facility] 12/13 18:46 Order name: Basic Metabolic Panel; Complete Time: 19:43 8 12/13 18:46 Order name: CT Head Brain wo Cont; Complete Time: 19:43 [facility] 12/13 19:20 Order name: Manual Differential; Complete Time: 20:08 EDMS 12/13 18:46 Order name: IV; Complete Time: 19:03 Administered Medications: 18:50 Drug: Reglan 10 mg Route: IVP; Site: left antecubital; ca1 20:00 Follow up: Response: No adverse reaction; Pain is decreased ca1 18:55 Drug: Benadryl 25 mg Route: IVP; Site: left antecubital; ca1 20:00 Follow up: Response: No adverse reaction; Pain is decreased ca1 19:00 Drug: Decadron - Dexamethasone 10 mg Route: IVP; Site: left antecubital; ca1 20:00 Follow up: Response: No adverse reaction; Pain is decreased ca1 20:17 Drug: TORadol - Ketorolac 15 mg Route: IVP; Site: left forearm; ca1 20:26 Follow up: Response: No adverse reaction; Pain is decreased ca1 Disposition: 12/14 09:27 Co-signature as Attending Physician, Deepak Wolf MD I agree with the assessment and [facility] plan of care. Disposition: 12/13/18 20:13 Discharged to Home. Impression: Migraine. - Condition is Stable. - Discharge Instructions: Migraine Headache. - Prescriptions for Fioricet 50- 325-40 mg Oral tablet - take 2 tablet by ORAL route every 4 hours as needed not to exceed 6 tablets per 24hrs; 20 tablet. - Medication Reconciliation Form, Thank You Letter, Antibiotic Education, Prescription Opioid Use form. - Follow up: Ricci Armas MD; When: 1 week; Reason: Recheck today's complaints, Continuance of care, Re-evaluation by your physician. - Problem is new. - Symptoms have improved. Signatures: Dispatcher [employer] EDAL Deepak Wolf MD MD cha Roszak, Josh, PA PA jr8 Jose Whelan RN RN la1 Kennedi Blanchard RN RN ca1 Corrections: (The following items were deleted from the chart) 12/13 20:27 20:13 12/13/2018 20:13 Discharged to Home. Impression: Migraine. Condition is Stable. ca1 Forms are Medication Reconciliation Form, Thank You Letter, Antibiotic Education, Prescription Opioid Use. Follow up: Ricci Armas; When: 1 week; Reason: Recheck today's complaints, Continuance of care, Re-evaluation by your physician. Problem is new. Symptoms have improved. jr8
[2018-12-13] MEDS ORDERED: KETOROLAC 30 MG/ML INJ ONE (20:16)
--- NOTE | 2018-12-13 20:28 | ER ---
Nurse's Notes [facility] Name: Krysten Marley Age: 43 yrs Sex: Female : 1975 Arrival Date: 12/13/2018 Time: 18:09 Bed 24 Private MD: Ranjit Perez Diagnosis: Migraine Presentation: 12/13 18:13 Presenting complaint: Patient states: I have been having a SAEED behind my right eye for la1 about 2 weeks now and it is just getting worse and worse. On Friday it started affecting my vision and now the pain is unbearable. I am being treated for what they think is glaucoma. Transition of care: patient was not received from another setting of care. Onset of symptoms was December 13, 2018. Risk Assessment: Do you want to hurt yourself or someone else? Patient reports no desire to harm self or others. Initial Sepsis Screen: Does the patient meet any 2 criteria? Yes Does the patient have a suspected source of infection? No. Patient's initial sepsis screen is negative. Care prior to arrival: None. 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 - Social history:: Smoking status: Patient uses tobacco products, smokes one-half pack cigarettes per day. - Ebola Screening: : No symptoms or risks identified at this time. Screenin:45 Abuse screen: Denies threats or abuse. Denies injuries from another. Nutritional ca1 screening: No deficits noted. Tuberculosis screening: No symptoms or risk factors identified. Fall Risk IV access (20 points). Assessment: 18:45 General: Appears in no apparent distress. comfortable, Behavior is calm, cooperative, ca1 appropriate for age. Pain: Complains of pain in right eye Pain radiates to forehead, right cheek, right ear and right taoist Pain currently is 10 out of 10 on a pain scale. Quality of pain is described as pressure. Neuro: Level of Consciousness is awake, alert, obeys commands, Oriented to person, place, time, situation, Appropriate for age. Cardiovascular: Heart tones S1 S2 present Capillary refill < 3 seconds Patient's skin is warm and dry. Respiratory: Airway is patent Respiratory effort is even, unlabored, Breath sounds are clear bilaterally. GI: Abdomen is flat, non-distended, Bowel sounds present X 4 quads. Abd is soft and non tender X 4 quads. EENT: Eyes are tearing on right inner canthus and left inner canthus Reports blurred vision. Derm: Skin is intact, is healthy with good turgor, Skin is pink, warm \T\ dry. Musculoskeletal: Circulation, motion, and sensation intact. Capillary refill < 3 seconds, Range of motion: intact in all extremities. 19:48 Reassessment: Patient appears in no apparent distress at this time. Patient and/or ca1 family updated on plan of care and expected duration. Pain level reassessed. Patient is alert, oriented x 3, equal unlabored respirations, skin warm/dry/pink. Patient states feeling better. 20:26 Reassessment: Patient appears in no apparent distress at this time. Patient is alert, ca1 oriented x 3, equal unlabored respirations, skin warm/dry/pink. Patient states feeling better. Vital Signs: 18:15 BP 118 / 78; Pulse 101; Resp 16; Temp 97.4; Pulse Ox 100% on R/A; Weight 68.95 kg; la1 Height 5 ft. 7 in. (170.18 cm); 19:48 BP 119 / 81; Pulse 69; Resp 16 S; Pulse Ox 100% on R/A; ca1 20:26 BP 111 / 71; Pulse 76; Resp 15 S; Pulse Ox 100% on R/A; ca1 18:15 Body Mass Index 23.81 (68.95 kg, 170.18 cm) la1 Visual Acuity: 18:17 Left Eye Visual acuity 20/40, Pupil size 4 mm, ; Right Eye Visual acuity 20/200, Pupil la1 size 4 mm, ; Without Lenses; ED Course: 18:09 Patient arrived in ED. dl4 18:10 Ranjit Perez MD is Private Physician. dl4 18:13 Arm band placed on left wrist. la1 18:15 Triage completed. la1 18:38 Stanton Gabriel PA is PHCP. jr8 18:38 Deepak Wolf MD is Attending Physician. jr8 18:41 Kennedi Blanchard RN is Primary Nurse. ca1 18:45 Patient has correct armband on for positive identification. Bed in low position. Call ca1 light in reach. Side rails up X 1. Pulse ox on. NIBP on. Warm blanket given. 18:45 No provider procedures requiring assistance completed. Inserted saline lock: 22 gauge ca1 in left antecubital area, using aseptic technique. ,using aseptic technique. by MINAL Bowles Blood collected. 19:03 CT completed. Patient tolerated procedure well. Patient moved back from CT. bq 19:04 CT Head Brain wo Cont In Process Unspecified. EDMS 20:12 Ricci Armas MD is Referral Physician. jr8 20:26 IV discontinued, intact, bleeding controlled, No redness/swelling at site. Pressure ca1 dressing applied. Administered Medications: 18:50 Drug: Reglan 10 mg Route: IVP; Site: left antecubital; ca1 20:00 Follow up: Response: No adverse reaction; Pain is decreased ca1 18:55 Drug: Benadryl 25 mg Route: IVP; Site: left antecubital; ca1 20:00 Follow up: Response: No adverse reaction; Pain is decreased ca1 19:00 Drug: Decadron - Dexamethasone 10 mg Route: IVP; Site: left antecubital; ca1 20:00 Follow up: Response: No adverse reaction; Pain is decreased ca1 20:17 Drug: TORadol - Ketorolac 15 mg Route: IVP; Site: left forearm; ca1 20:26 Follow up: Response: No adverse reaction; Pain is decreased ca1 Outcome: 20:13 Discharge ordered by . jr8 20:26 Discharged to home ambulatory, with family. ca1 20:26 Condition: stable 20:26 Discharge instructions given to patient, Instructed on discharge instructions, follow up and referral plans. no driving heavy equipment, medication usage, Demonstrated understanding of instructions, follow-up care, medications, Prescriptions given X 1. 20:27 Patient left the ED. ca1 Signatures: Dispatcher [employer] EDMS Audrey Gomez Josh, PA PA jr8 Jose Whelan RN RN la1 Diego Blankenship dl4 Kennedi Blanchard RN RN ca1 Corrections: (The following items were deleted from the chart) 18:15 18:13 Presenting complaint: Patient states: I have been having a SAEED behind my right eye la1 for about 2 weeks now and it is just getting worse and worse. On Friday it started affecting my vision and now the pain is unbearable. la1
[2018-12-13 20:56] VITALS: TEMP 97.4; O2SAT 100
[2018-12-13 20:58] VITALS: BP 111/71
== END 2018-12-13 20:27 | disposition home or self-care (01) ==
LOC: ER 18:07
DX: G43.909 Migraine, unspecified, not intractable, without status migrainosus (principal); F17.210 Nicotine dependence, cigarettes, uncomplicated
CPT/HCPCS: 85025; 80048; 36415; 70450; 96375; 96374; 99284; J2765; J1100

== ENCOUNTER 2021-03-08 11:39 | Emergency (ER) | payer BC ==
[2021-03-08] MEDS ORDERED: METHYLPREDNISOLONE 125 MG INJ ONE (12:37)
[2021-03-08] MEDS ORDERED: ALBUTEROL 2.5 MG/3 ML NEB SOL ONE (12:37)
[2021-03-08] MEDS ORDERED: IPRATROPIUM BROM 0.5MG/2.5ML ONE (12:38)
[2021-03-08 12:45] LABS: Absolute Lymphocytes (CBC) 1.1 K/uL (0.7-4.9); Basophils % 0.3 % (0-1.3); Hematocrit 41.4 % (36.0-45.0); Lymphocytes % 22.2 % (15.3-44.8); MPV 8.8 fL (7.6-11.3); RBC Red Blood Cell Count 5.69 M/uL (3.86-4.86)
[2021-03-08 12:46] LABS: Protime INR 1.28
[2021-03-08 12:59] LABS: ALT/SGPT 21 U/L (12-78); AST/SGOT 23 U/L (15-37); Albumin 3.3 g/dL (3.4-5.0); Alkaline Phosphatase 46 U/L (45-117); BUN Blood Urea Nitrogen 11 mg/dL (7-18); Bicarbonate 21 mmol/L (21-32); Bilirubin Direct 0.1 mg/dL (0-0.2); Bilirubin Total 0.4 mg/dL (0.2-1.0); Glucose Level 88 mg/dL (74-106); Magnesium 2.4 mg/dL (1.8-2.4); NT PRO-BNP 69 pg/mL (<125); Potassium 3.8 mmol/L (3.5-5.1); Protein, Total 8.7 g/dL (6.4-8.2); Sodium Level 138 mmol/L (136-145); Troponin (Emerg Dept Use Only) < 0.02 ng/mL (0.0-0.045)
--- NOTE | 2021-03-08 13:24 | RAD REPORT ---
EXAM DESCRIPTION: Meera Single View03/08/2021 12:36 pm CLINICAL HISTORY: Chest pain COMPARISON: 2018 FINDINGS: The lungs appear clear of acute infiltrate. The heart is normal size IMPRESSION: No acute abnormalities displayed
--- NOTE | 2021-03-08 14:04 | ER ---
Nurse's Notes [facility] Name: Krysten Marley Age: 45 yrs Sex: Female : 1975 Arrival Date: 03/08/2021 Time: 11:44 Bed 7 Private MD: Diagnosis: Shortness of breath Presentation: 03/08 11:58 Chief complaint: Patient states: Shortness of breath, difficulty breathing, and mid vg1 sternal chest pain that radiates to left arm and left leg for about two days. States nausea. Coronavirus screen: Vaccine status: Patient reports being unvaccinated. Client denies travel out of the [place] in the last 14 days. Ebola Screen: Patient negative for fever greater than or equal to 101.5 degrees Fahrenheit, and additional compatible Ebola Virus Disease symptoms. Initial Sepsis Screen: Does the patient meet any 2 criteria? No. Patient's initial sepsis screen is negative. Does the patient have a suspected source of infection? No. Patient's initial sepsis screen is negative. Risk Assessment: Do you want to hurt yourself or someone else? Patient reports no desire to harm self or others. Onset of symptoms was March 06, 2021. 11:58 Method Of Arrival: Ambulatory vg1 11:58 Acuity: NELSON 2 vg1 Triage Assessment: 12:00 General: Appears in no apparent distress. uncomfortable, Behavior is calm, cooperative. vg1 Pain: Complains of pain in mid-sternal area Pain radiates to left arm and left leg Pain currently is 5 out of 10 on a pain scale. Respiratory: Reports shortness of breath on exertion Onset: The symptoms/episode began/occurred x2 days, the patient has mild shortness of breath. 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 - Social history:: Smoking status: Patient reports the use of cigarette tobacco products, smokes one-half pack cigarettes per day, Patient/guardian denies using alcohol, street drugs, The patient lives with family. - Family history:: not pertinent. Screenin:20 Abuse screen: Denies threats or abuse. Nutritional screening: No deficits noted. ll3 Tuberculosis screening: No symptoms or risk factors identified. Fall Risk IV access (20 points). Assessment: 12:16 General: Appears in no apparent distress. comfortable, Behavior is calm, cooperative. ll3 Pain: Complains of pain in mid-sternal area Pain does not radiate. Pain currently is 5 out of 10 on a pain scale. Quality of pain is described as pressure, Pain began 2-3 days ago. Is continuous, Alleviated by rest, Aggravated by exercise, increased activity. Neuro: Level of Consciousness is awake, alert, obeys commands, Oriented to person, place, time, situation, Gait is steady, Speech is normal, Facial symmetry appears normal. Cardiovascular: Patient's skin is warm and dry. Rhythm is regular Chest pain is described as Pain is 5 out of 10 on a pain scale. quality is pressure, began Friday. Respiratory: Airway is patent Trachea midline Respiratory effort is even, unlabored, Respiratory pattern is regular, symmetrical, Breath sounds are clear bilaterally. GI: Abdomen is flat. Derm: Skin is pink, warm \T\ dry. 13:09 Reassessment: Patient appears in no apparent distress at this time. No changes from ll3 previously documented assessment. Patient and/or family updated on plan of care and expected duration. Pain level reassessed. Patient is alert, oriented x 3, equal unlabored respirations, skin warm/dry/pink. Patient denies pain at this time. 14:04 Reassessment: Patient appears in no apparent distress at this time. No changes from ll3 previously documented assessment. Patient and/or family updated on plan of care and expected duration. Pain level reassessed. Patient is alert, oriented x 3, equal unlabored respirations, skin warm/dry/pink. Patient denies pain at this time. Vital Signs: 11:58 BP 111 / 80; Pulse 115; Resp 18; Temp 98.7; Pulse Ox 100% ; Weight 67.13 kg; Height 5 vg1 ft. 6 in. (167.64 cm); Pain 5/10; 13:04 BP 111 / 87; Pulse 104; Resp 21; Pulse Ox 99% ; jl7 14:15 BP 125 / 78; Pulse 95; Resp 16; Pulse Ox 98% ; ll3 11:58 Body Mass Index 23.89 (67.13 kg, 167.64 cm) vg1 ED Course: 11:44 Patient arrived in ED. ds1 12:00 Triage completed. vg1 12:00 Arm band placed on. vg1 12:03 Janae Wooten MD is Attending Physician. ma2 12:08 Jenna Villavicencio, RN is Primary Nurse. ll3 12:20 Patient has correct armband on for positive identification. Placed in gown. Bed in low ll3 position. Call light in reach. Side rails up X 1. 12:36 XRAY Chest (1 view) In Process Unspecified. EDMS 14:05 No provider procedures requiring assistance completed. ll3 14:22 IV discontinued, intact, bleeding controlled, No redness/swelling at site. Pressure ll3 dressing applied. Administered Medications: 12:49 Drug: Albuterol - atroVENT (ipratropium) (3:1) (2.5 mg - 0.5 mg) 3 ml Route: Nebulizer; 7 13:47 Follow up: Response: No adverse reaction; Marked relief of symptoms ll3 12:49 Drug: MethylPrednisoLONE 125 mg Route: IVP; Site: left antecubital; jl7 13:47 Follow up: Response: No adverse reaction ll3 Outcome: 14:04 Discharge ordered by . ma2 14:22 Discharged to home ambulatory. ll3 14:22 Condition: stable 14:22 Discharge instructions given to patient, Instructed on discharge instructions, follow up and referral plans. medication usage, Demonstrated understanding of instructions, follow-up care, medications, Prescriptions given X 2. 14:23 Patient left the ED. ll3 Signatures: Dispatcher [employer] EDKS Vale Delacruz ds1 Azucena Lance, RN RN jl7 Janae Wooten MD MD ma2 Garcia, Victoria, RN RN vg1 Jenna Villavicencio, MINAL RN ll3
--- NOTE | 2021-03-08 14:04 | EDPHYS ---
Physician Documentation [facility] Name: Krysten Marley Age: 45 yrs Sex: Female : 1975 Arrival Date: 03/08/2021 Time: 11:44 Bed 7 Private MD: ED Physician Janae Wooten HPI: 03/08 12:42 This 45 yrs old Black Female presents to ER via Ambulatory with complaints of Breathing ma2 Difficulty - When Walking. 12:42 Onset: The symptoms/episode began/occurred gradually, 3 month(s) ago. Associated signs ma2 and symptoms: Pertinent negatives: productive cough, dizziness, hemoptysis, nausea, visual changes. Severity of symptoms: At their worst the symptoms were mild in the emergency department the symptoms are unchanged. The patient has experienced similar episodes in the past, hx of copd,. 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 - Social history:: Smoking status: Patient reports the use of cigarette tobacco products, smokes one-half pack cigarettes per day, Patient/guardian denies using alcohol, street drugs, The patient lives with family. - Family history:: not pertinent. ROS: 12:42 Constitutional: Negative for fever, chills, and weight loss. ma2 12:42 All other systems are negative. Exam: 12:42 Constitutional: This is a well developed, well nourished patient who is awake, alert, ma2 and in no acute distress. Head/Face: Normocephalic, atraumatic. Eyes: Pupils equal round and reactive to light, extra-ocular motions intact. Lids and lashes normal. Conjunctiva and sclera are non-icteric and not injected. Cornea within normal limits. Periorbital areas with no swelling, redness, or edema. ENT: Nares patent. No nasal discharge, no septal abnormalities noted. Tympanic membranes are normal and external auditory canals are clear. Oropharynx with no redness, swelling, or masses, exudates, or evidence of obstruction, uvula midline. Mucous membranes moist. Neck: Trachea midline, no thyromegaly or masses palpated, and no cervical lymphadenopathy. Supple, full range of motion without nuchal rigidity, or vertebral point tenderness. No Meningismus. Chest/axilla: Normal chest wall appearance and motion. Nontender with no deformity. No lesions are appreciated. Cardiovascular: Regular rate and rhythm with a normal S1 and S2. No gallops, murmurs, or rubs. Normal PMI, no JVD. No pulse deficits. Respiratory: Has expiratory expiratory wheeze both lungs, otherwise lungs have equal breath sounds bilaterally, clear to auscultation and percussion. No rales, rhonchi or space noted. No increased work of breathing, no retractions or nasal flaring. Abdomen/GI: Soft, non-tender, with normal bowel sounds. No distension or tympany. No guarding or rebound. No evidence of tenderness throughout. Skin: Warm, dry with normal turgor. Normal color with no rashes, no lesions, and no evidence of cellulitis. MS/ Extremity: Pulses equal, no cyanosis. Neurovascular intact. Full, normal range of motion. Neuro: Awake and alert, GCS 15, oriented to person, place, time, and situation. Cranial nerves II-XII grossly intact. Motor strength 5/5 in all extremities. Sensory grossly intact. Cerebellar exam normal. Normal gait. Vital Signs: 11:58 BP 111 / 80; Pulse 115; Resp 18; Temp 98.7; Pulse Ox 100% ; Weight 67.13 kg; Height 5 vg1 ft. 6 in. (167.64 cm); Pain 5/10; 13:04 BP 111 / 87; Pulse 104; Resp 21; Pulse Ox 99% ; jl7 14:15 BP 125 / 78; Pulse 95; Resp 16; Pulse Ox 98% ; ll3 11:58 Body Mass Index 23.89 (67.13 kg, 167.64 cm) vg1 MDM: 12:03 Patient medically screened. ma2 12:42 Differential diagnosis: Anemia asthma, Bronchitis Chronic Obstructive Pulmonary Disease ma2 pneumonia, reactive airway disease, Liver DVT never had DVT, never had PE, Wells score is 0. 14:02 The patient's Wells Deep Vein Thrombosis Score was calculated as follows: No Risks (0 ma2 Pts). The patient's pulmonary embolism risk score was calculated as follows: No Risks (0 Pts). Immunization status:. Data reviewed: vital signs, nurses notes, EMS record. Counseling: I had a detailed discussion with the patient and/or guardian regarding: the historical points, exam findings, and any diagnostic results supporting the discharge/admit diagnosis, the presence of at least one elevated blood pressure reading (>120/80) during this emergency department visit, the need for outpatient follow up. ED course: Patient heart rate is 100 bpm, she has dyspnea on exertion, she needs outpatient work-up, I explained follow-up need to follow-up with PCP. And return to ER if any new symptom, or current symptoms get worse.. 03/08 12:23 Order name: Basic Metabolic Panel; Complete Time: 13:12 ll3 03/08 12:23 Order name: CBC with Diff; Complete Time: 13:12 ll3 03/08 12:23 Order name: LFT's; Complete Time: 13:12 ll3 03/08 12:23 Order name: Magnesium; Complete Time: 13:12 ll3 03/08 12:23 Order name: NT PRO-BNP; Complete Time: 13:12 ll3 03/08 12:23 Order name: PT-INR; Complete Time: 13:12 ll3 03/08 12:23 Order name: Troponin (emerg Dept Use Only); Complete Time: 13:12 ll3 03/08 12:23 Order name: XRAY Chest (1 view); Complete Time: 14:02 ll3 03/08 12:23 Order name: EKG; Complete Time: 12:24 ll3 03/08 12:23 Order name: Cardiac monitoring; Complete Time: 12:35 ll3 03/08 12:23 Order name: EKG - Nurse/Tech; Complete Time: 12:35 ll3 03/08 12:23 Order name: IV Saline Lock; Complete Time: 12:35 ll3 03/08 12:23 Order name: Labs collected and sent; Complete Time: 12:35 ll3 03/08 12:23 Order name: O2 Per Protocol; Complete Time: 12:35 ll3 03/08 12:23 Order name: O2 Sat Monitoring; Complete Time: 12:36 ll3 Administered Medications: 12:49 Drug: Albuterol - atroVENT (ipratropium) (3:1) (2.5 mg - 0.5 mg) 3 ml Route: Nebulizer; jl7 13:47 Follow up: Response: No adverse reaction; Marked relief of symptoms ll3 12:49 Drug: MethylPrednisoLONE 125 mg Route: IVP; Site: left antecubital; 7 13:47 Follow up: Response: No adverse reaction ll3 Disposition Summary: 03/08/21 14:04 Discharge Ordered Location: Home ma2 Condition: Stable ma2 Diagnosis - Shortness of breath ma2 Followup: ma2 - With: Private Physician - When: Tomorrow - Reason: If symptoms return, Continuance of care Discharge Instructions: - Discharge Summary Sheet ma2 - Shortness of Breath, Adult, [id number] ma2 Forms: - Medication Reconciliation Form ma2 - Thank You Letter ma2 - Antibiotic Education ma2 - Prescription Opioid Use ma2 Prescriptions: - albuterol sulfate 90 mcg/actuation Inhalation aerosol powdr breath activated - inhale 2 puff by INHALATION route 1-3 times daily; 2 vial; Refills: 0, Product ma2 Selection Permitted - Medrol (Ata) 4 mg Oral Tablets, Dose Pack - take 1 tablet by ORAL route as directed - follow package instructions; 1 ma2 packet; Refills: 0, Product Selection Permitted Signatures: Dispatcher [employer] Azucena Hastings RN RN jl7 Janae Wooten MD MD ma2 Chloe Crowell, RN RN vg1 Jenna Villavicencio RN RN ll3
[2021-03-08 14:27] VITALS: TEMP 98.7
[2021-03-08 14:29] VITALS: BP 125/78; O2SAT 98
== END 2021-03-08 14:23 | disposition home or self-care (01) ==
LOC: ER 11:39
DX: R06.02 Shortness of breath (principal); F17.210 Nicotine dependence, cigarettes, uncomplicated
CPT/HCPCS: 93005; 85025; 80048; 36415; 83735; 85610; 80076; 84484; 83880; 71045; 94640; 96374; 99284; J2930